=== PATIENT | male | born 1965 | race African-American/Black ===

== ENCOUNTER 2025-03-07 13:27 | Emergency (ER) | payer MEDICAID ==
[~2025-03-07] VITALS: Ht 188 cm; Wt 86.0 kg
[2025-03-07 13:30] VITALS: O2SAT 98
[2025-03-07] MEDS: ACETAMINOPHEN 325MG TABLET PO ONE (13:48)
[2025-03-07 16:06] VITALS: BP 164/97; PULSE 100; RESP 16; TEMP 37; O2SAT 98
== END 2025-03-07 16:17 | disposition home or self-care (01) ==
LOC: ER 13:27
DX: S00.03XA Contusion of scalp, initial encounter (principal); I10 Essential (primary) hypertension; E11.9 Type 2 diabetes mellitus without complications; W01.0XXA Fall on same level from slipping, tripping and stumbling without subsequent striking against object, initial encounter; Y93.89 Activity, other specified; Y92.89 Other specified places as the place of occurrence of the external cause; Y99.8 Other external cause status
CPT/HCPCS: 70486; 99284

== ENCOUNTER 2025-03-30 10:28 | Emergency (ER) | payer MEDICAID ==
[2025-03-30] VITALS (7 sets, daily range): BP systolic 115–130; BP diastolic 66–97; PULSE 96–105; RESP 18; TEMP 39; O2SAT 98–100
[~2025-03-30] VITALS: Ht 185.4 cm; Wt 100.0 kg
[2025-03-30 11:03] LABS: HEMATOCRIT. 23.7 % (42.0-52.0); HEMOGLOBIN. 7.7 g/dL (14.0-18.0); MEAN PLATELET VOLUME 9.2 fl (7.4-10.4); PLATELET 192 x1000/uL (130-400); RED BLOOD CELL COUNT 2.85 mill/uL (4.7-6.1); RED CELL DISTRIBUTION WIDTH 16.3 % (11.6-14.6)
[2025-03-30 11:16] LABS: CREATININE 4.9 mg/dL (0.6-1.3)
[2025-03-30 11:17] LABS: UREA NITROGEN BLOOD 27.0 mg/dL (9-23)
[2025-03-30 11:45] LABS: LYMPHOCYTES % MANUAL 2.0 % (20.0-50.0); MONOCYTES % MANUAL 9.0 % (2.0-8.0); NEUTROPHILS % MANUAL 89.0 % (45.0-75.0); PLATELET ESTIMATE NORMAL
[2025-03-30 12:09] LABS: HEPATITIS A AB IGM NEGATIVE (Negative)
[2025-03-30 12:10] LABS: HEPATITIS B CORE AB IGM NEGATIVE (Negative); HEPATITIS C AB NON REACTIVE (Neg) (Negative)
[2025-03-30] MEDS: SODIUM CHLORIDE 0.9% 1,000 ML IV ONE (13:34)
[2025-03-30] MEDS: DIPHENOXYLATE/ATROPINE 2.5/0.025MG TABLET PO ONE (13:35)
[2025-03-30] MEDS ORDERED: DILTIAZEM HCL 5MG/ML 5ML VIAL IV ONE (15:15)
[2025-03-30 17:16] LABS: GLUCOSE URINE NEGATIVE (NEGATIVE); KETONES URINE NEGATIVE (NEGATIVE); LEUKOCYTE ESTERASE URINE 3+ (NEGATIVE); NITRITE URINE NEGATIVE (NEGATIVE); OCCULT BLOOD URINE 3+ (NEGATIVE); PH URINE 6.5 (4.5-8.0); PROTEIN URINE 3+ (NEGATIVE); SPECIFIC GRAVITY URINE 1.011 (1.005-1.030); UROBILINOGEN URINE 0.2 E.U./dL (0.2-1.0)
[2025-03-30 18:50] LABS: CLARITY URINE SL HAZY (CLEAR); COLOR URINE STRAW (YELLOW)
[2025-03-30 18:56] LABS: AMORPHOUS SEDIMENT URINE 1+ /lpf; MUCUS URINE 1+ /lpf (NONE/TRACE); RBC URINE 0-2 /hpf (0-2); SQUAMOUS EPITHELIAL CELL URINE RARE /lpf (RARE/1+)
[2025-03-30 18:57] LABS: BACTERIA URINE 3+
[2025-03-30] MEDS ORDERED: TOPUD MT (19:03)
[2025-03-30] MEDS ORDERED: IBUP-1525 MT (19:03)
[2025-03-30] MEDS ORDERED: CIPR-263 MT (19:03)
[2025-03-30] MEDS ORDERED: DIPH-1091 MT (19:03)
[2025-03-30] MEDS ORDERED: PROM25TA13 MT (19:04)
== END 2025-03-30 19:20 | disposition home or self-care (01) ==
LOC: ER 10:28
DX: N39.0 Urinary tract infection, site not specified (principal); D64.9 Anemia, unspecified; E11.9 Type 2 diabetes mellitus without complications; E87.0 Hyperosmolality and hypernatremia; I10 Essential (primary) hypertension; Z86.74 Personal history of sudden cardiac arrest; Z99.2 Dependence on renal dialysis
CPT/HCPCS: 99285; 96360; 96361; 80048; 81003; 83605; 85025; 87340; 36415; 86709; 93005; 86705; J7030; 90935